=== PATIENT | female | born 1990 | race African-American/Black ===

== ENCOUNTER 2020-02-13 17:55 | Emergency (ER) | payer OTHER ==
[~2020-02-13] VITALS: Ht 160 cm; Wt 81.7 kg
[~2020-02-13 17:55] MED LIST: PROCTOCREAM-HC30 G1 RC
[2020-02-13] MEDS ORDERED: MOBIC15 MG PO (20:22)
[2020-02-13] MEDS ORDERED: TESSALON PERLE100 MG PO (20:22)
[2020-02-13] MEDS ORDERED: GUAIFEN-CODEINE10 ML PO (20:22)
== END 2020-02-13 20:33 | disposition home or self-care (01) ==
LOC: ER 17:55
DX: J06.9 Acute upper respiratory infection, unspecified (principal); Z20.828 Contact with and (suspected) exposure to other viral communicable diseases; R19.7 Diarrhea, unspecified